=== PATIENT | female | born 1985 | race Caucasian/White ===

== ENCOUNTER 2021-08-16 23:34 | Emergency (ER) | payer OTHER ==
[~2021-08-16] VITALS: Ht 165.1 cm; Wt 63.5 kg
[~2021-08-16 23:34] MED LIST: CLEOCIN HCL300 MG PO; DELSYM30 ML PO; MOTRIN800 MG PO; Motrin,Rufen800 MG PO; PNV PRENATAL HE1 TAB; PRENATAL1 TA1 PO; TRAMADOL HCL50 MG PO
[2021-08-17 00:10] LABS: HEMATOCRIT 39.8 % (37.0-47.0); MEAN CELL VOLUME 90.9 fl (81.0-99.0); MEAN CORPUSCULAR HGB 31.1 pg (27.0-31.0); MEAN CORPUSCULAR HGB CONC 34.2 g/dl (33.0-37.0); MEAN PLATELET VOLUME 9.8 fl (9.6-12.3); PLATELET COUNT AUTOMATED 217 10*3/uL (130-400); RED BLOOD COUNT 4.38 10*6/uL (4.10-5.10); RED CELL DISTRI WIDTH 12.5 % (0-14.5); WHITE BLOOD COUNT 32.6 10*3/uL (4.8-10.8)
[2021-08-17 00:12] LABS: MANUAL DIFF REFLEX YES
[2021-08-17 00:27] LABS: ALKALINE PHOSPHATASE 103 U/L (45-117); BUN 13 mg/dl (7-24); CHLORIDE 102 mmol/L (98-107); CREATININE 0.78 mg/dL (0.55-1.02); POTASSIUM 3.2 mmol/L (3.5-5.1); SGOT/AST 25 IU/L (3-35); SGPT/ALT 32 U/L (12-78); SODIUM 136 mmol/L (136-145); TOTAL PROTEIN 7.2 gm/dL (6.4-8.2)
[2021-08-17 00:33] LABS: ATYPICAL LYMPHS 1 % (0-0); PLATELET SUFFICIENCY NORMAL (NORMAL); TOTAL CELLS COUNTED 100 #CELLS
== END 2021-08-17 01:07 | disposition left against medical advice (07) ==
LOC: ED 23:34
PROVIDERS: Internal Medicine
DX: J02.9 Acute pharyngitis, unspecified (principal); Z20.822 Contact with and (suspected) exposure to COVID-19; D72.829 Elevated white blood cell count, unspecified; Z88.0 Allergy status to penicillin; Z88.1 Allergy status to other antibiotic agents; Z79.899 Other long term (current) drug therapy

== ENCOUNTER 2021-12-22 00:39 | Emergency (ER) | payer OTHER ==
[2021-12-22 02:00] LABS: URINE AMPHETAMINES < 1000 (1000ng/ml); URINE BARBITURATES < 200 (200ng/ml); URINE BENZODIAZEPINES < 200 (200ng/ml); URINE CANNABINOIDS (THC) < 50 (50ng/ml); URINE COCAINE > 300 (300ng/ml); URINE METHADONE < 300 (300ng/ml); URINE OPIATES < 300 (300ng/ml); URINE PHENCYCLIDINE < 25 (25ng/ml)
== END 2021-12-22 02:53 ==
LOC: ED 00:39
PROVIDERS: Emergency Medicine
DX: O99.322 Drug use complicating pregnancy, second trimester (principal); F14.10 Cocaine abuse, uncomplicated; O99.342 Other mental disorders complicating pregnancy, second trimester; F45.8 Other somatoform disorders; Z88.0 Allergy status to penicillin; Z88.1 Allergy status to other antibiotic agents; Z79.2 Long term (current) use of antibiotics; Z79.899 Other long term (current) drug therapy; Z3A.23 23 weeks gestation of pregnancy

== ENCOUNTER 2022-09-01 10:36 | Emergency (ER) | payer OTHER ==
[~2022-09-01] VITALS: Ht 162.5 cm; Wt 49.9 kg
[2022-09-01 11:25] LABS: HEMATOCRIT 44.7 % (37.0-47.0); MEAN CELL VOLUME 94.1 fl (81.0-99.0); MEAN CORPUSCULAR HGB 30.5 pg (27.0-31.0); MEAN CORPUSCULAR HGB CONC 32.4 g/dl (33.0-37.0); MEAN PLATELET VOLUME 9.5 fl (9.6-12.3); PLATELET COUNT AUTOMATED 247 10*3/uL (130-400); RED BLOOD COUNT 4.75 10*6/uL (4.10-5.10); RED CELL DISTRI WIDTH 12.9 % (0-14.5); WHITE BLOOD COUNT 22.1 10*3/uL (4.8-10.8)
[2022-09-01 11:28] LABS: MANUAL DIFF REFLEX YES
[2022-09-01 11:34] LABS: BILIRUBIN Negative (Negative); BLOOD Negative (Negative); CLARITY Cloudy (Clear); COLOR Yellow (Yellow); GLUCOSE Negative (Negative); KETONE Negative (Negative); LEUKO ESTERASE 1+ (Negative); NITRITE Negative (Negative); PH 5.5 (4.5-8.0); SPECIFIC GRAVITY 1.025 (1.001-1.030); UROBILINOGEN 0.2 E.U./dl (0.0-1.0)
[2022-09-01 11:38] LABS: ACT PARTIAL THROMBO TIME 27.5 SECONDS (20.0-32.1)
[2022-09-01 11:44] LABS: ALKALINE PHOSPHATASE 56 U/L (46-116); BUN 12 mg/dl (9-23); CHLORIDE 107 mmol/L (98-107); ETHYL ALCOHOL 3.2 mg/dl (<3); SGPT/ALT 8 U/L (10-49); TOTAL CELLS COUNTED 100 #CELLS; TOTAL PROTEIN 6.8 gm/dL (6.0-8.0)
[2022-09-01 11:45] LABS: BURR CELLS FEW; OVALOCYTES FEW; PLATELET SUFFICIENCY NORMAL (NORMAL); POLYCHROMASIA SLIGHT; TOXIC GRANULATION SLIGHT
[2022-09-01 11:48] LABS: BACTERIA 1+; EPITHELIAL CELLS 51-100
[2022-09-01 11:53] LABS: URINE AMPHETAMINES Negative (1000ng/ml); URINE BARBITURATES Negative (200ng/ml); URINE BENZODIAZEPINES Negative (200ng/ml); URINE CANNABINOIDS (THC) Positive (50ng/ml); URINE COCAINE Positive (300ng/ml); URINE METHADONE Negative (300ng/ml); URINE OPIATES Negative (300ng/ml); URINE PHENCYCLIDINE Negative (25ng/ml)
== END 2022-09-01 12:44 | disposition home or self-care (01) ==
LOC: ED 10:36
PROVIDERS: Emergency Medicine
DX: M54.2 Cervicalgia (principal); R10.32 Left lower quadrant pain; M79.604 Pain in right leg; M79.662 Pain in left lower leg; Z88.0 Allergy status to penicillin; Z88.1 Allergy status to other antibiotic agents; Z87.891 Personal history of nicotine dependence; V64.5XXA Driver of heavy transport vehicle injured in collision with heavy transport vehicle or bus in traffic accident, initial encounter; Y93.89 Activity, other specified; Y92.410 Unspecified street and highway as the place of occurrence of the external cause; Y99.8 Other external cause status